=== PATIENT | female | born 1970 | race Hispanic/Latino ===

== ENCOUNTER 2016-11-06 21:27 | Emergency (ER) | payer OTHER ==
[~2016-11-06 21:27] MED LIST: ADVAIR DISKU 11 UNIT IH; ADVAIR DISKUS 21 DSK INH; FERRALET 901 TAB PO; IBUPROFEN800 M1 PO; IBUPROFEN800 MG PO; INTEGRA-F1 CAP PO; LORTAB PO; METFORMIN HCL500 MG PO; NATURAL IRON65 MG PO; PANTOPRAZOLE SO40 MG PO; PROAIR HFA0.09 MG/Ac INH; PROTONIX 40MG T40 MG PO; PROTONIX40 M3 PO; SINGULAIR 5 MG T5 MG PO; SINGULAIR10 MG PO
[2016-11-06 21:30] VITALS: BP 125/85
--- NOTE | 2016-11-06 21:59 | RADIOLOGY REPORT ---
EXAMINATION: XR CHEST CLINICAL INFORMATION: Cough. Congestion. COMPARISON: Chest radiography 06/22/2015. TECHNIQUE: PA and lateral views of the chest were obtained. FINDINGS: No new significant abnormality is noted involving the heart, lungs, mediastinum, bony thorax, or soft tissues. Upper abdominal surgical clips. IMPRESSION: No evidence of pneumonia.
--- NOTE | 2016-11-06 22:13 | ED INFLUENZA/URI COMPLAINT ---
History of Present Illness General Chief Complaint: Upper Respiratory Sx/Fever Stated Complaint: UPPER RESP SYMPTOMS, Hx ASTHMA Source: patient Exam Limitations: no limitations Vital Signs & Intake/Output Vital Signs & Intake/Output Vital Signs Date Time Temp Pulse Resp B/P Pulse O2 O2 Flow FiO2 Ox Delivery Rate 11/06 2130 97.6 87 18 125/85 100 Room Air Allergies Coded Allergies: cat dander (TRIGGERS ASTHMA AND EYES SWELL 03/25/16) morphine (HEADACHE AND NAUSEA 03/25/16) oats (ITCHY 03/25/16) shellfish derived (SHRIMP - ITCH AND ALLERGY TESTED POSITIVE 03/25/16) tramadol (ITCH 03/25/16) Reconcile Medications Albuterol Sulfate (Proair Hfa) 0.09 MG/Actuation IZZY 2 PUFF INH PRN ASTHMA ( Reported) Azithromycin (Zithromax) 500 MG TABLET 1 TAB PO DAILY BRONCHITIS Benzonatate (Tessalon Perle) 100 MG CAPSULE 1 CAP PO TID PRN COUGH FLUTICASONE/SALMETEROL (Advair 250-50 Diskus) 250 MCG-50 MCG/DOSE BLST.W.DEV 1 PUFF INH BID PRN ASTHMA (Reported) Ibuprofen 800 MG TABLET 1 TAB PO PRN MENSTRUAL CRAMPS (Reported) IRON FUM & PS CMP/FA/VIT C/B3 (Integra F Capsule) (Unknown Strength) CAP ( Unknown Dose) PO DAILY SUPPLEMENT (Reported) Montelukast Sodium (Singulair) 10 MG TAB 1 TAB PO PRN ALLERGIES (Reported) Pantoprazole Sodium (Protonix) 40 MG TABLET. 1 TAB PO QDAY GASTRIC PAIN Triage Note: TRIAGE; PT TO ED C/O THAT SHE FEELS LIKE SHE IS GETTING A COLD. HAS A HX OF ASTHMA AND STATES SHE IS GETTING A COUGH AND INTERMITTENT SOB. DENIES ANY FEVERS AT HOME. Triage Nurses Notes Reviewed? yes Onset: Gradual Duration: constant Timing: recent history Severity: moderate Severity Numbers: 5 : No Patient currently breastfeeds: No HPI: Patient is a 46-year-old female with past medical history of allergies and asthma who presents emergency room stating that last week patient was seen at urgent care facility for asthma exacerbation and was given steroids with improvement of her wheezing over the last 2 days patient has developed a gradual onset of productive yellow cough pleuritic chest pain upon coughing denies weakness and fatigue and chills. Denies any positive sick contacts. Patient has been taking at home inhaler medication and respiratory medications for her symptoms with minimal relief. (FRANC MENDOZA) Past History Travel History Traveled to [place] past 21 day No Medical History Any Pertinent Medical History? 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 No (FRANC MENDOZA) Review of Systems Review of Systems Constitutional: Reports: see HPI, chills. EENTM: Reports: no symptoms. Respiratory: Reports: see HPI, cough. Cardiovascular: Reports: no symptoms. GI: Reports: no symptoms. Genitourinary: Reports: no symptoms. Musculoskeletal: Reports: no symptoms. Skin: Reports: no symptoms. Neurological/Psychological: Reports: no symptoms. Hematologic/Endocrine: Reports: no symptoms. Immunologic/Allergic: Reports: no symptoms. All Other Systems: Reviewed and Negative (FRANC MENDOZA) Physical Exam Physical Exam General Appearance: well developed/nourished, no apparent distress Ears, Nose, Throat: normal ENT inspection, moist mucous membrane, hearing grossly normal, Tympanic normal, pharynx normal, NONTENDER SINUS Comments: Well-developed well-nourished person in no acute distress HEENT: Normal EENT exam, extraocular motion intact, no nystagmus. Pupils equally round and reactive to light and accommodation. Nose is atraumatic. External auditory canal and Tympanic membranes clear. Pharynx normal. No swelling or edema. Neck: Supple, no lymphadenopathy, normal range of motion without pain or tenderness Back: Nontender, no CVA tenderness. Cardiovascular: Regular rate and rhythms no murmurs rubs or gallops, normal JVP Respiratory: Chest nontender. No respiratory distress.breath sounds clear to auscultation bilaterally Abdomen: Soft, nontender nondistended, no appreciable organomegaly. Normal bowel sounds. No ascites Extremity: No edema, no calf tenderness to palpation, normal and equal pulses. Neuro: Alert oriented x3, motor sensory normal, Skin: No appreciable rash on exposed skin, skin is warm and dry. Psych: Mood and affect is normal, memory and judgment is normal. Core Measures Severe Sepsis Present: No Septic Shock Present: No (FRANC MENDOZA) Progress Differential Diagnosis: influenza, meningitis, neutropenia, otitis, pneumonia, pharyngitis, sinusitis Plan of Care: Patient on initial examination had clear lungs to auscultation and unremarkable physical exam findings oxygen saturation was 98% room air patient was afebrile chest x-ray was unremarkable for acute process. Upon discharge patient looks well no apparent distress and will comply with discharge instructions and had no questions Diagnostic Imaging: Viewed by Me: Radiology Read. CXR Impression: no acute abnormality Initial ED EKG: none Comments: PATIENT: SALVADOR ROQUE PRESENT AGE: 46 PATIENT ACCOUNT NO: [id number] : 72 LOCATION: [facility] ORDERING PHYSICIAN: PETER HATHAWAY DO (TBS) SERVICE DATE: 11/06/16 EXAM TYPE: RAD - XRY-CHEST XRAY, PA AND LATERAL EXAMINATION: XR CHEST CLINICAL INFORMATION: Cough. Congestion. COMPARISON: Chest radiography 06/22/2015. TECHNIQUE: PA and lateral views of the chest were obtained. FINDINGS: No new significant abnormality is noted involving the heart, lungs, mediastinum, bony thorax, or soft tissues. Upper abdominal surgical clips. IMPRESSION: No evidence of pneumonia. (FRANC MENDOZA) Departure Departure Disposition: HOME OR SELF CARE Condition: Stable Clinical Impression Primary Impression: Bronchitis Referrals: CYNDY SIMON APRN (PCP/Family) Additional Instructions: As discussed begin the prescription of azithromycin as directed for the full course. Begin the prescription of Tessalon Perles for cough. Begin over-the- counter Mucinex and Sudafed for symptoms. If no better on Monday follow-up with primary care doctor. Continue home medications as directed. If symptoms worsen or if you develop a new concerning symptom return to the emergency room. Prescriptions are waiting at [facility] pharmacy. Departure Forms: Customer Survey General Discharge Information Prescriptions: Current Visit Scripts Azithromycin (Zithromax) 1 TAB PO DAILY #5 TAB Benzonatate (Tessalon Perle) 1 CAP PO TID PRN COUGH #21 CAP (FRANC MENDOZA) PA/WIRE RIGGER Co-Sign Statement Statement: ED Attending supervision documentation- [] I saw and evaluated the patient. I have also reviewed all the pertinent lab results and diagnostic results. I agree with the findings and the plan of care as documented in the PA's/WIRE RIGGER's documentation. [X] I have reviewed the ED Record and agree with the PA's/WIRE RIGGER's documentation. [] Additions or exceptions (if any) to the PAs/WIRE RIGGER's note and plan are summarized below: [] (ALEJANDRA MAHAN,PATRICIA Soriano)
[2016-11-06] MEDS ORDERED: TESSALON PERLE100 M1 PO (22:15)
[2016-11-06] MEDS ORDERED: ZITHROMAX500 M2 PO (22:15)
== END 2016-11-06 22:22 ==
LOC: ERH 21:27
DX: J40 Bronchitis, not specified as acute or chronic (principal)

== ENCOUNTER 2016-11-26 19:46 | Emergency (ER) | payer OTHER ==
[~2016-11-26] VITALS: Ht 157.5 cm; Wt 54.4 kg
[~2016-11-26 19:46] MED LIST changes: +TESSALON PERLE100 M1 PO; +ZITHROMAX500 M2 PO
[2016-11-26 19:54] VITALS: BP 136/88
[2016-11-26] MEDS ORDERED: TOPAMAX200 M1 PO (20:19)
[2016-11-26] MEDS ORDERED: LISINOPRIL40 M1 PO (20:20)
[2016-11-26] MEDS ORDERED: VENLAFAXINE HC100 M1 PO (20:22)
[2016-11-26] MEDS ORDERED: METFORMIN HCL1000 M1 PO (20:23)
--- NOTE | 2016-11-26 20:23 | ED NECK/BACK PAIN COMPLAINT ---
History of Present Illness General Chief Complaint: Low Back Pain/Injury Stated Complaint: BACK PAIN Source: patient, old records Exam Limitations: no limitations Vital Signs & Intake/Output Vital Signs & Intake/Output Vital Signs Date Time Temp Pulse Resp B/P Pulse O2 O2 Flow FiO2 Ox Delivery Rate 11/26 1953 97.8 87 18 136/88 98 Room Air Allergies Coded Allergies: cat dander (TRIGGERS ASTHMA AND EYES SWELL 03/25/16) morphine (HEADACHE AND NAUSEA 03/25/16) oats (ITCHY 03/25/16) shellfish derived (SHRIMP - ITCH AND ALLERGY TESTED POSITIVE 03/25/16) tramadol (ITCH 03/25/16) Triage Note: PT TO TRIAGE WITH C/O LOW/MIDDLE BACK PAIN AND R SIDE OF BACK PAIN RADIATING TO NECK 8/10 S/P BAND BACKWARDS TO PREVENT FALLING. PAIN IS GETTING WORSE. NO OTHER COMPLAINTS. VSS. Triage Nurses Notes Reviewed? yes : No Patient currently breastfeeds: No HPI: Patient is a 46-year-old female presents complaining of right-sided thoracic pain, bilateral lumbar paraspinal pain. Patient was about to fall yesterday and bent backwards causing the pain. Pain is a sharp pain, worsens with movement. Pain is currently severe. Patient reports that she did not fall to the ground that she was able to catch herself prior to falling. Patient denies head injury , numbness, pain radiating down her legs, incontinence, abdominal pain. (TAO SANDERS) Past History Travel History Traveled to [place] past 21 day No Medical History Any Pertinent Medical History? 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 No (TAO SANDERS) Review of Systems Review of Systems Constitutional: Reports: no symptoms. Eyes: Reports: no symptoms. Respiratory: Denies: short of breath. Cardiovascular: Denies: chest pain. Gastrointestinal/Abdominal: Denies: abdominal pain. Musculoskeletal: Reports: see HPI. Skin: Reports: no symptoms. Neurological/Psychological: Denies: headache, numbness, paresthesia. (TAO SANDERS) Physical Exam Physical Exam General Appearance: well developed/nourished, alert, awake Head: atraumatic, normal appearance Eyes: Bilateral: normal appearance. Ears, Nose, Throat, Mouth: hearing grossly normal, moist mucous membrane Neck: normal inspection, supple, full range of motion, no midline tenderness, no paraspinal tenderness Respiratory: normal breath sounds, chest non-tender, no respiratory distress, lungs clear Cardiovascular: regular rate/rhythm Gastrointestinal: soft, non-tender Back: right thoracic paraspinal tenderness. Bilateral lumbar paraspinal tenderness. No midline tenderness. Full range of motion. Extremities: non-tender, normal range of motion Straight Leg Raising: Right: Negative. Left: Negative. DTR: Patellar: 2: L4 Right, L4 Left. Neurologic/Psych: no motor/sensory deficits, awake, alert, oriented x 3, normal gait, normal mood/affect Skin: intact, normal color, warm/dry (TAO SANDERS) Progress Differential Diagnosis: cauda equina syn, herniated disc, myofascial strain, spinal cord inj, T/L spine injury Plan of Care: No acute neurologic abnormalities on exam. No midline tenderness. Injuries appear consistent with muscle strain. Imaging deferred. Will treat conservatively and have patient follow-up with her primary care provider if no improvement. (TAO SANDERS) Departure Departure Time of Disposition: 2024 Disposition: HOME OR SELF CARE Condition: Stable Clinical Impression Primary Impression: Back strain Referrals: CYNDY SIMON APRN (PCP/Family) Additional Instructions: Rest, apply heat to the affected area for 20 minutes 4-5 times a day. Follow-up with your primary doctor if no improvement within 2-3 days. Return to the emergency department if numbness, weakness, incontinence, or worsening of symptoms. Departure Forms: Customer Survey General Discharge Information (TAO SANDERS) PA/STUDIO OWNER Co-Sign Statement Statement: ED Attending supervision documentation- [] I saw and evaluated the patient. I have also reviewed all the pertinent lab results and diagnostic results. I agree with the findings and the plan of care as documented in the PA's/STUDIO OWNER's documentation. x I have reviewed the ED Record and agree with the PA's/STUDIO OWNER's documentation. [] Additions or exceptions (if any) to the PAs/STUDIO OWNER's note and plan are summarized below: [] (RIK MAHAN,ROSA MARIA)
[2016-11-26] MEDS ORDERED: DILTIAZEM 24HR240 MG PO (20:24)
[2016-11-26] MEDS ORDERED: FUROSEMIDE40 M1 PO (20:24)
[2016-11-26] MEDS ORDERED: ATORVASTATIN CA80 M1 PO (20:25)
[2016-11-26] MEDS ORDERED: FENOFIBRATE48 M1 PO (20:26)
[2016-11-26] MEDS ORDERED: TOPROL XL100 M1 PO (20:26)
[2016-11-26] MEDS ORDERED: ABILIFY10 M1 PO (20:27)
[2016-11-26] MEDS ORDERED: LYRICA100 M1 PO (20:28)
[2016-11-26] MEDS ORDERED: ATIVAN1 M1 PO (20:28)
[2016-11-26] MEDS ORDERED: MELOXICAM7.5 M1 PO (20:29)
[2016-11-26] MEDS ORDERED: INVOKANA100 M1 PO (20:29)
[2016-11-26] MEDS ORDERED: MECLIZINE HCL25 MG PO (20:29)
[2016-11-26] MEDS ORDERED: LEVEMIR100 UNIT/1 SC ×2 (20:30)
[2016-11-26] MEDS ORDERED: NOVOLOG100 UNIT/1 (20:31)
[2016-11-26] MEDS ORDERED: TANZEUM50 MG/0.5 INJ (20:32)
[2016-11-26] MEDS ORDERED: MULTIVITAMINS1 EAC9 PO (20:33)
[2016-11-26] MEDS ORDERED: CLARITIN10 M1 PO (20:33)
[2016-11-26] MEDS ORDERED: VITAMIN B122500 MC1 PO (20:33)
[2016-11-26] MEDS ORDERED: CYCLOBENZAPRINE5 M2 PO (20:34)
[2016-11-26] MEDS ORDERED: PERCOCET 5-3251 EACH PO (20:34)
== END 2016-11-26 20:42 ==
LOC: ERH 19:46
DX: S39.012A Strain of muscle, fascia and tendon of lower back, initial encounter (principal); X58.XXXA Exposure to other specified factors, initial encounter

== ENCOUNTER 2016-12-07 13:31 | Emergency (ER) | payer OTHER ==
[~2016-12-07] VITALS: Ht 144.8 cm; Wt 54.4 kg
[~2016-12-07 13:31] MED LIST changes: +ABILIFY10 M1 PO; +ATIVAN1 M1 PO; +ATORVASTATIN CA80 M1 PO; +CLARITIN10 M1 PO; +CYCLOBENZAPRINE5 M2 PO; +DILTIAZEM 24HR240 MG PO; +FENOFIBRATE48 M1 PO; +FUROSEMIDE40 M1 PO; +INVOKANA100 M1 PO; +LEVEMIR100 UNIT/1 SC; +LISINOPRIL40 M1 PO; +LYRICA100 M1 PO; +MECLIZINE HCL25 MG PO; +MELOXICAM7.5 M1 PO; +METFORMIN HCL1000 M1 PO; +MULTIVITAMINS1 EAC9 PO; +NOVOLOG100 UNIT/1; +PERCOCET 5-3251 EACH PO; +TANZEUM50 MG/0.5 INJ; +TOPAMAX200 M1 PO; +TOPROL XL100 M1 PO; +VENLAFAXINE HC100 M1 PO; +VITAMIN B122500 MC1 PO
[2016-12-07 13:51] VITALS: BP 130/85
--- NOTE | 2016-12-07 15:44 | ED GENERAL ADULT ---
History of Present Illness General Chief Complaint: Foot or Ankle Injury Stated Complaint: L ANKLE PAIN Source: patient, family Exam Limitations: no limitations Vital Signs & Intake/Output Vital Signs & Intake/Output Vital Signs Date Time Temp Pulse Resp B/P Pulse O2 O2 Flow FiO2 Ox Delivery Rate 12/07 1351 98.4 108 20 130/85 98 Room Air Allergies Coded Allergies: cat dander (TRIGGERS ASTHMA AND EYES SWELL 03/25/16) morphine (HEADACHE AND NAUSEA 03/25/16) oats (ITCHY 03/25/16) shellfish derived (SHRIMP - ITCH AND ALLERGY TESTED POSITIVE 03/25/16) tramadol (ITCH 03/25/16) Reconcile Medications Fluticasone/Salmeterol (Advair 250-50 Diskus) 250 MCG-50 MCG/DOSE BLST.W.DEV 1 PUF INH BID WHEEZING (Reported) Montelukast Sodium 10 MG TABLET 1 TAB PO DAILY ANTI-INFLAMMATORY (Reported) Naproxen 500 MG TABLET 1 TAB PO BID PAIN CONTROL (Reported) Pantoprazole Sodium 40 MG TABLET.DR 1 TAB PO DAILY ACID REFLUX (Reported) Triage Note: PT TO ED C/O LEFT ANKLE PAIN SINCE YESTERDAY. DENIES ANY INJURY. HAS NOT TRIED OTC MEDS. REFUSING MEDS IN TRIAGE. Triage Nurses Notes Reviewed? yes : No Patient currently breastfeeds: No HPI: 46-year-old woman with past medical history of left ankle fracture status post surgical fixation and hardware and gastric bypass seen for evaluation of acute onset left ankle pain. She reports 6/10 throbbing ankle pain worsened with movement and dorsiflexion. She was at home sitting down watching TV when the pain started and denies any recent trauma. She reports that she "broke her ankle" approximately one year ago and underwent surgical fixation with placement of "plates and screws". She denies taking any [id number] medications or any other remedies to relieve her pain. She denies any other symptoms. Additionally she denies any headache, fever, chills, chest pain, palpitations, shortness breath, nausea, vomiting, diarrhea. (RANJAN MAHAN,MARY) Past History Travel History Traveled to [place] past 21 day No Medical History Any Pertinent Medical History? 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 Yes (MARY WOODRUFF MD) Review of Systems Review of Systems Constitutional: Reports: see HPI. (MARY WOODRUFF MD) Physical Exam Physical Exam General Appearance: well developed/nourished, no apparent distress, alert, awake , comfortable Comments: General -well-developed, well-nourished middle-aged woman in no acute distress HEENT - NCAT, PERRL, EOMI, anicteric sclera Cardio - S1, S2 w/o murmurs/gallops/rubs Resp - CTA bilaterally w/o wheezing/rhochi/crackles GI - soft, nontender, nondistended, bowel sounds present Neuro - Awake and alert, CN II - XII grossly intact Extremities - no edema, pulses intact, left foot 3 range of motion at ankle, sensation intact, no swelling in ankles, nontender to palpation, mildly tender to dorsiflexion, no obvious skin changes, staggered gait with hesitation, no deformity Core Measures ACS in differential dx? No CVA/TIA Diagnosis: No Severe Sepsis Present: No Septic Shock Present: No (MARY WOODRUFF MD) Progress Differential Diagnoses I considered the following diagnoses in my evaluation of the patient: Ankle sprain/strain, infected hardware, occult fracture, gout, inflammatory condition Plan of Care: Orders Procedure Date/time Status XRY-FOOT TWO VIEWS, LEFT 12/07 1518 Active Initial ED EKG: none Comments: Given patient's physical exam with relatively benign findings it is likely that patient is experiencing and arthritis secondary to chronic changes in the joints after the surgical fixation. He was previously maintained on oral ibuprofen for pain control was discontinued from this medication due to her gastric bypass surgery and recommendations of her surgeon. Multiview x-ray of the joint demonstrated chronic changes secondary to the open reduction and internal fixation of the distal left fibular fracture without any acute findings. She was instructed to follow-up with her surgeon or an orthopedist for further evaluation and management of her symptoms. (MARY WOODRUFF MD) Departure Departure Disposition: HOME OR SELF CARE Condition: Stable Clinical Impression Primary Impression: Monoarthritis of ankle Qualifiers: Laterality: left Qualified Code: M13.172 - Monoarthritis, not elsewhere classified, left ankle and foot Referrals: VIJI MAHAN,CYNYD STARKS APRN (PCP/Family) [facility] DIRK MAHAN,KYLAH Stiles Departure Forms: Customer Survey General Discharge Information (MARY WOODRUFF MD) PA/PAINTER HELPER Co-Sign Statement Statement: ED Attending supervision documentation- [] I saw and evaluated the patient. I have also reviewed all the pertinent lab results and diagnostic results. I agree with the findings and the plan of care as documented in the PA's/PAINTER HELPER's documentation. [X] I have reviewed the ED Record and agree with the PA's/PAINTER HELPER's documentation. [] Additions or exceptions (if any) to the PAs/PAINTER HELPER's note and plan are summarized below: [] Resident Co-Sign Statement Statement: ED Attending supervision documentation- [x] I saw and evaluated the patient. I have also reviewed all the pertinent lab results and diagnostic results. I agree with the findings and the plan of care as documented in the Resident's documentation. [x] I have reviewed the ED Record and agree with the Resident's documentation. [] Additions or exceptions (if any) to the Resident's note and plan are summarized below: [] (ROSA ELENA MAHAN,JOEY) Critical Care Note Critical Care Note Critical Care Time: non-applicable (MARY WOODRUFF MD)
--- NOTE | 2016-12-07 15:48 | RADIOLOGY REPORT ---
EXAMINATION: XR FOOT, LEFT CLINICAL INFORMATION: Previous fracture with hardware placement. Acute onset pain. COMPARISON: Intraoperative fluoroscopic images of ORIF left ankle 10/26/2011.. TECHNIQUE: AP and lateral views of the left foot. FINDINGS: Chronic changes of an open reduction internal fixation of a distal left fibular fracture are redemonstrated. Hardware is grossly intact and there is no evidence of loosening or infection. There is no evidence of acute fracture or dislocation. Joint spaces are grossly maintained. Soft tissues are unremarkable. IMPRESSION: Chronic changes related to an open reduction internal fixation of a distal left fibular fracture. No acute finding.
[2016-12-07] MEDS ORDERED: NAPROXEN500 M2 PO (16:20)
[2016-12-07] MEDS ORDERED: MONTELUKAST SOD10 M1 PO (16:21)
[2016-12-07] MEDS ORDERED: ADVAIR 250-501 EACH INH (16:22)
[2016-12-07] MEDS ORDERED: PANTOPRAZOLE SO40 M1 PO (16:22)
== END 2016-12-07 16:21 ==
LOC: ERH 13:31
DX: M13.172 Monoarthritis, not elsewhere classified, left ankle and foot (principal)
CPT/HCPCS: 73620-LT

== ENCOUNTER 2016-12-31 15:25 | Emergency (ER) | payer OTHER ==
[~2016-12-31] VITALS: Ht 144.8 cm; Wt 54.4 kg
[~2016-12-31 15:25] MED LIST changes: +ADVAIR 250-501 EACH INH; +MONTELUKAST SOD10 M1 PO; +NAPROXEN500 M2 PO; +PANTOPRAZOLE SO40 M1 PO
[2016-12-31] MEDS ORDERED: CELEBREX100 M1 PO (16:54)
[2016-12-31] MEDS ORDERED: CYCLOBENZAPRINE10 M1 PO (16:55)
[2016-12-31] MEDS ORDERED: MULTI-DAY VITA1 EACH PO (16:56)
[2016-12-31 17:00] LABS: ABSOLUTE BASOPHIL COUNT 0 /CUMM (0.0-0.2); ABSOLUTE EOSINOPHIL COUNT 0 /CUMM (0.0-0.7); ABSOLUTE GRANULOCYTE CT 4.8 /CUMM (1.4-6.5); ABSOLUTE LYMPH COUNT 0.9 /CUMM (1.2-3.4); ABSOLUTE MONOCYTE COUNT 0.5 /CUMM (0.10-0.60); BASOPHIL % 0.3 % (0.0-2.0); EOSINOPHIL % 0.8 % (0-5); GRANULOCYTE % 76.2 % (42.2-75.2); HEMATOCRIT 37.8 % (37-47); MEAN CORPUSCULAR HGB 29.1 PG (27.0-31.0); MEAN CORPUSCULAR HGB CONC 33.1 G/DL (33.0-37.0); MEAN CORPUSCULAR VOLUME 87.8 FL (81.0-99.0); MEAN PLATELET VOLUME 7.9 FL (7.4-10.4); PLATELET COUNT 266 /CUMM (130-400); WHITE BLOOD CELL COUNT 6.3 /CUMM (4.8-10.8)
--- NOTE | 2016-12-31 18:25 | ED CARDIAC/CP/PALPITATIONS ---
History of Present Illness General Chief Complaint: Palpitations Stated Complaint: PALPATATIONS, X 1 HR Source: patient Exam Limitations: no limitations Vital Signs & Intake/Output Vital Signs & Intake/Output Vital Signs Date Time Temp Pulse Resp B/P Pulse O2 O2 Flow FiO2 Ox Delivery Rate 12/31 2021 97.1 97 18 130/81 99 Room Air 12/31 1823 97.4 96 20 127/79 100 Room Air 12/31 1649 99 Room Air 12/31 1538 97.6 119 20 145/90 99 Room Air ED Intake and Output 01/01 0000 12/31 1200 Intake Total 1000 Output Total Balance 1000 Intake, IV 1000 Patient 120 lb Weight Allergies Coded Allergies: NSAIDS (Non-Steroidal Anti-Inflamma (PER PT CANT TAKE DUE TO BYPASS 12/31/16) cat dander (TRIGGERS ASTHMA AND EYES SWELL 03/25/16) morphine (HEADACHE AND NAUSEA 03/25/16) oats (ITCHY 03/25/16) shellfish derived (SHRIMP - ITCH AND ALLERGY TESTED POSITIVE 03/25/16) tramadol (ITCH 03/25/16) Reconcile Medications Celecoxib (Celebrex) 100 MG CAPSULE 1 CAP PO DAILY PRN PAIN/INFLAMMATION ( Reported) Cyclobenzaprine HCl 10 MG TABLET 1 TAB PO QHS MUSCLE RELAXER (Reported) Fluticasone/Salmeterol (Advair 250-50 Diskus) 250 MCG-50 MCG/DOSE BLST.W.DEV 1 PUF INH BID WHEEZING (Reported) Montelukast Sodium 10 MG TABLET 1 TAB PO DAILY ANTI-INFLAMMATORY (Reported) Multivitamin (Multi-Day Vitamins) 1 EACH TABLET 1 TAB PO DAILY SUPPLEMENT ( Reported) Naproxen 500 MG TABLET 1 TAB PO BID PAIN CONTROL (Reported) Pantoprazole Sodium 40 MG TABLET.DR 1 TAB PO DAILY ACID REFLUX (Reported) Triage Note: PT TO ED C/O HEART PALPITATIONS X 1 HOUR. DENIES C/P, DIFF BREATHING, SOB. EKG DONE. Triage Nurses Notes Reviewed? yes : No Patient currently breastfeeds: No HPI: 46 yo PMH Asthma, DM, Gastric Bypass (2013) presenting with palpitations. Intermittent palpitations for the last week, fast/strong heartbeat, present currently. Denies associated fevers, chills, URI Sx, chest pain, SOB, AP, N/V/D/ C, bloody stools, urinary Sx, focal neurologic Sx, dizziness, recent immobility/ hospitalization, LE swelling/pain. Intermittent EtOH use, most recently 1 month ago. Hx of chronic left sided neck pain, not worse recently. (ROSIBEL MCKEON MD) Past History Travel History Traveled to [place] past 21 day No Medical History Any Pertinent Medical History? 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 Yes (ROSIBEL MCKEON MD) Review of Systems Review of Systems Constitutional: Reports: no symptoms. EENTM: Reports: no symptoms. Respiratory: Reports: no symptoms. Cardiovascular: Reports: palpitations. Denies: chest pain, orthopena, peripheral edema. GI: Reports: no symptoms. Genitourinary: Reports: no symptoms. Musculoskeletal: Reports: neck pain (Chronic). Skin: Reports: no symptoms. Neurological/Psychological: Reports: no symptoms. Hematologic/Endocrine: Reports: no symptoms. Immunologic/Allergic: Reports: no symptoms. All Other Systems: Reviewed and Negative (ROSIBEL MCKEON MD) Physical Exam Physical Exam General Appearance: well developed/nourished, no apparent distress, alert, awake Head: atraumatic, normal appearance Eyes: Bilateral: normal appearance. Ears, Nose, Throat: normal pharynx, normal ENT inspection Neck: normal inspection, supple, full range of motion Cardiovascular: normal peripheral pulses, tachycardia Gastrointestinal: normal bowel sounds, soft, non-tender Back: normal inspection, normal range of motion Extremities: normal inspection, no edema Neurologic/Psych: no motor/sensory deficits, awake, alert, oriented x 3 Core Measures ACS in differential dx? No Severe Sepsis Present: No Septic Shock Present: No (ROSIBEL MCKEON MD) Progress Differential Diagnosis: atrial fibrillation, hypovolemia, hyperthyroid, pulmonary embolism, sepsis Plan of Care: Orders Procedure Date/time Status Regular Diet 01/01 B Active Add-on Test (ER Only) 12/31 181 Active FREE T4 12/31 165 Complete URINE 12/31 163 Complete URINALYSIS 12/31 163 Complete THYROID STIMULATING HORMONE 12/31 163 Complete CBC WITHOUT DIFFERENTIAL 12/31 163 Complete BASIC METABOLIC PANEL 12/31 163 Complete EKG 12/31 1527 Active Laboratory Tests 12/31/16 1819: Urine Color YEL, Urine Clarity CLEAR, Urine pH 6.0, Ur Specific [place] 1.015, Urine Protein NEG, Urine Ketones NEG, Urine Nitrite NEG, Urine Bilirubin NEG, Urine Urobilinogen 0.2, Ur Leukocyte Esterase NEG, Ur Microscopic SEDIMENT EXAMINED, Urine RBC 3-5, Urine WBC 1-3 H, Ur Epithelial Cells FEW, Urine Crystals 1+ CA OX H, Urine Bacteria FEW H, Urine Mucus FEW, Micro UA Comment B[place] YEAST H, Urine Hemoglobin MOD H, Urine Glucose 100 H, Urine Test NEGATIVE 12/31/161649: Anion Gap 11, Estimated GFR > 60, BUN/Creatinine Ratio 21.4, Glucose 82, Calcium 9.3, TSH 0.242 L, Free T4 0.97, CBC w Diff NO MAN DIFF REQ, RBC 4.30, MCV 87.8, MCH 29.1, RDW 13.0, MPV 7.9, Gran % 76.2 H, Lymphocytes % 14.0 L, Monocytes % 8.7, Eosinophils % 0.8, Basophils % 0.3, Absolute Granulocytes 4.8, Absolute Lymphocytes 0.9 L, Absolute Monocytes 0.5, Absolute Eosinophils 0, Absolute Basophils 0, PUBS MCHC 33.1 Physician MDM: 46 yo F PMH asthma, cervicalgia, gastric bypass 2013 presenting with palpitations. HR 100-110s, regular, remainder of exam as above. ECG sinus tachycardia, non-ischemic. DDx: Hypovolemia, hyperthyroidism, anemia, anxiety, pain, low concern for PE, EtOH withdrawal. CBC with normal Hgb. BMP unermarkable. TSH mildly low, Free T4 normal. Given 2L NS with improvement in HR to 80-90s. On re-examination palpitations resolved, patient resquesting discharge. Return to care precautions discussed with patient, will return for CP or SOB. Plan to f/u in the next 2-3 days with PMD for pulse recheck. D/Rui. D/W Dr. Arzate. (ROSIBEL MCKEON MD) Initial ED EKG: Sinus tachycardia (ROSIBEL MCKEON MD) Departure Departure Disposition: HOME OR SELF CARE Condition: Stable Clinical Impression Primary Impression: Tachycardia Secondary Impressions: Dehydration, Palpitations Referrals: CYNDY SIMON APRN (PCP/Family) Additional Instructions: Drink plenty of fluids. Follow up with your primary care physician in the next 2-3 days. Return to the ED for any new, worsening, or concerning symptoms. Departure Forms: Customer Survey General Discharge Information (ROSIBEL MCKEON MD) Resident Co-Sign Statement Statement: ED Attending supervision documentation- [X] I saw and evaluated the patient. I have also reviewed all the pertinent lab results and diagnostic results. I agree with the findings and the plan of care as documented in the Resident's documentation. [X] I have reviewed the ED Record and agree with the Resident's documentation. [] Additions or exceptions (if any) to the Resident's note and plan are summarized below: [] (ROSA ELENA MAHAN,JOEY) Critical Care Note Critical Care Note Critical Care Time: non-applicable (ROSIBEL MCKEON MD)
[2016-12-31 20:22] VITALS: BP 130/81
== END 2016-12-31 20:30 ==
LOC: ERH 15:25
PROVIDERS: Student in an Organized Health Care Education/Training Program
DX: R00.0 Tachycardia, unspecified (principal); E86.0 Dehydration; R00.2 Palpitations
CPT/HCPCS: 81001; 81025; 93005; 93010; 96360; 96361; 99291

== ENCOUNTER 2017-03-03 14:37 | Emergency (ER) | payer OTHER ==
[~2017-03-03] VITALS: Ht 144.8 cm; Wt 54.4 kg
[~2017-03-03 14:37] MED LIST changes: +CELEBREX100 M1 PO; +CYCLOBENZAPRINE10 M1 PO; +MULTI-DAY VITA1 EACH PO
[2017-03-03 14:41] VITALS: BP 129/82
--- NOTE | 2017-03-03 16:04 | ED ANKLE/FOOT INJURY COMPLAINT ---
History of Present Illness General Chief Complaint: Foot or Ankle Injury Stated Complaint: NEEDS PAIN MED FOR L ANKLE PAIN Source: patient Exam Limitations: no limitations Vital Signs & Intake/Output Vital Signs & Intake/Output Vital Signs Date Time Temp Pulse Resp B/P B/P Pulse O2 O2 Flow FiO2 Mean Ox Delivery Rate 03/03 1441 98.0 92 20 129/82 100 Room Air Allergies Coded Allergies: NSAIDS (Non-Steroidal Anti-Inflamma (PER PT CANT TAKE DUE TO BYPASS 12/31/16) cat dander (TRIGGERS ASTHMA AND EYES SWELL 03/25/16) morphine (HEADACHE AND NAUSEA 03/25/16) oats (ITCHY 03/25/16) shellfish derived (SHRIMP - ITCH AND ALLERGY TESTED POSITIVE 03/25/16) tramadol (ITCH 03/25/16) Reconcile Medications Celecoxib (Celebrex) 100 MG CAPSULE 1 CAP PO DAILY PRN PAIN/INFLAMMATION ( Reported) Cyclobenzaprine HCl 10 MG TABLET 1 TAB PO QHS MUSCLE RELAXER (Reported) Fluticasone/Salmeterol (Advair 250-50 Diskus) 250 MCG-50 MCG/DOSE BLST.W.DEV 1 PUF INH BID WHEEZING (Reported) Montelukast Sodium 10 MG TABLET 1 TAB PO DAILY ANTI-INFLAMMATORY (Reported) Multivitamin (Multi-Day Vitamins) 1 EACH TABLET 1 TAB PO DAILY SUPPLEMENT ( Reported) Naproxen 500 MG TABLET 1 TAB PO BID PAIN CONTROL (Reported) Pantoprazole Sodium 40 MG TABLET.DR 1 TAB PO DAILY ACID REFLUX (Reported) Triage Note: PT TO ED REQUESTING PAIN MEDS FOR LEFT ANKLE PAIN. PT STATES SHE HAD SURGERY HERE IN 2011 AND STATES "IT'S NEVER BEEN THE SAME". PT ALLERGIC TO NSAIDS AND DECLINING TYLENOL. DENIES ANY NEW INJURY TO ANKLE. Triage Nurses Notes Reviewed? yes : No Patient currently breastfeeds: No HPI: This patient is a 46 year old female who presented for evaluation of left ankle pain requesting pain medication. She reported that she had ankle surgery here at [facility] in 2011 after she broke her ankle requiring hardware. She stated that the pain is always there. It gets up to an 8 out of 10 and is worse with ambulation. It is sharp and non-radiating. She took a friend's Percocet which, "was the only thing that helped. I'm allergic to NSAIDs, morphine, and Tramadol." She reported that Tylenol does not help. Her PCP is working on getting her in to physicial therapy. No recent injuries to the area. (LOS MOELLER PA-C) Past History Travel History Traveled to [place] past 21 day No Medical History Any Pertinent Medical History? 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 No (LOS MOELLER PA-C) Review of Systems Review of Systems Constitutional: Reports: no symptoms. EENTM: Reports: no symptoms. Respiratory: Reports: no symptoms. Cardiovascular: Reports: no symptoms. GI: Reports: no symptoms. Musculoskeletal: Reports: see HPI. Skin: Reports: no symptoms. Neurological/Psychological: Reports: no symptoms. All Other Systems: Reviewed and Negative (LOS MOELLER PA-C) Physical Exam Physical Exam Leg/Knee/Thigh Left: normal range of motion, normal inspection Comments: General: Well-developed, well-nourished person in no acute distress HEENT: Head normocephalic, moist mucous membranes Back: Antalgic gait Respiratory: No respiratory distress. Speaking in full sentences Extremities: Normal and equal pulses Left ankle: Well-healed surgical incision site over-lying the lateral malleolus. No edema or overlying erythema or ecchymosis to the joint. FROM at the ankle. Non-tender to palpation. No deformities noted Neuro: A&Ox3 Skin: Warm and dry Psych: Normal mood and affect (LOS MOELLER PA-C) Progress Differential Diagnosis: septic arthritis, gout, fracture, dislocation, sprain, contusion, compartmental syndrome, chronic pain Plan of Care: Current Medications Sig/Tonya Start time Last Medication Dose Stop Time Status Admin Oxycodone/ 1 TAB ONCE ONE 03/03 1600 UNVr Acetaminophen 03/03 1601 (Percocet) Departure Departure Disposition: HOME OR SELF CARE Condition: Stable Clinical Impression Primary Impression: Chronic pain of left ankle Referrals: CYNDY SIMON APRN (PCP/Family) Additional Instructions: Please follow-up with your primary care physician for further management of your pain. Departure Forms: Customer Survey General Discharge Information (SUNNI AZEVEDO,LOS) PA/SECURITY TECHNICIAN Co-Sign Statement Statement: ED Attending supervision documentation- [] I saw and evaluated the patient. I have also reviewed all the pertinent lab results and diagnostic results. I agree with the findings and the plan of care as documented in the PA's/SECURITY TECHNICIAN's documentation. [X] I have reviewed the ED Record and agree with the PA's/SECURITY TECHNICIAN's documentation. [] Additions or exceptions (if any) to the PAs/SECURITY TECHNICIAN's note and plan are summarized below: [] (ALEJANDRA MAHAN,PATRICIA Soriano)
== END 2017-03-03 17:16 ==
LOC: ERH 14:37
DX: G89.29 Other chronic pain (principal); M25.572 Pain in left ankle and joints of left foot

== ENCOUNTER 2017-03-13 20:01 | Emergency (ER) | payer OTHER ==
[2017-03-13] MEDS ORDERED: BUTALB-ACETAMI1 EAC1 PO (20:41)
[2017-03-13] MEDS ORDERED: VITAMIN D250000 UNIT PO (20:42)
[2017-03-13] MEDS ORDERED: PROTEIN POWDER480 GM PO (20:44)
--- NOTE | 2017-03-13 21:15 | ED GENERAL ADULT ---
History of Present Illness General Chief Complaint: Abdominal Pain/Flank Pain Stated Complaint: RIGHT FLANK PAIN Source: patient Exam Limitations: no limitations Vital Signs & Intake/Output Vital Signs & Intake/Output Vital Signs Date Time Temp Pulse Resp B/P B/P Pulse O2 O2 Flow FiO2 Mean Ox Delivery Rate 03/13 2148 98.6 82 18 124/72 98 Room Air 03/13 2101 Room Air 03/13 2021 98.0 92 20 127/86 96 ED Intake and Output 03/14 0000 03/13 1200 Intake Total 0 Output Total Balance 0 Intake, Oral 0 Patient 125 lb Weight Allergies Coded Allergies: NSAIDS (Non-Steroidal Anti-Inflamma (PER PT CANT TAKE DUE TO BYPASS 12/31/16) cat dander (TRIGGERS ASTHMA AND EYES SWELL 03/25/16) celecoxib (From CELEBREX) (DOES SOMETHING TO HEART PER PT 03/13/17) morphine (HEADACHE AND NAUSEA 03/25/16) oats (ITCHY 03/25/16) shellfish derived (SHRIMP - ITCH AND ALLERGY TESTED POSITIVE 03/25/16) tramadol (ITCH 03/25/16) Reconcile Medications Butalb/Acetaminophen/Caffeine (Hbfhkd-Gmjmnbdx-Casm 50-300-40) 50 MG-300 MG-40 MG CAPSULE 1 TAB PO PRN MIGRAINES (Reported) Cyclobenzaprine HCl 10 MG TABLET 1 TAB PO QHS MUSCLE RELAXER (Reported) Diclofenac Sodium (Voltaren) 1 % GEL..GRAM. 1 GM TOP 4 TIMES/DAY pain apply to affected area(s) Ergocalciferol (Vitamin D2) (Vitamin D2) 50,000 UNIT CAPSULE 1 CAP PO QSUN SUPPLEMENT (Reported) Fluticasone/Salmeterol (Advair 250-50 Diskus) 250 MCG-50 MCG/DOSE BLST.W.DEV 1 PUF INH BID WHEEZING (Reported) Lidocaine (Lidoderm) 5 % ADH..PATCH 1 PAT TOP DAILY pain may wear up to 12 hours Montelukast Sodium 10 MG TABLET 1 TAB PO DAILY ANTI-INFLAMMATORY (Reported) Multivitamin (Multi-Day Vitamins) 1 EACH TABLET 1 TAB PO DAILY SUPPLEMENT ( Reported) Oxycodone HCl/Acetaminophen (Percocet 5-325 MG Tablet) 5 MG-325 MG TABLET 1 TAB PO BID pain Pantoprazole Sodium 40 MG TABLET.DR 1 TAB PO DAILY ACID REFLUX (Reported) Protein Supplement (Protein Powder) (Unknown Strength) POWDER (Unknown Dose) PO DAILY SUPPLEMENT (Reported) Triage Note: PER PT 1 MONTH OF RT SIDE TO BACK PAIN WONT GO AWAY CONSTANT, USING HOT PACKS NO URINE CO PAIN 5/10 DOES NOT GET MENSES ANYMORE Triage Nurses Notes Reviewed? yes : No Patient currently breastfeeds: No HPI: This is a 46 yo female with PMH of DM, gastric bypass in 2013, questionable SBO in 2014, remote cholecystectomy, 2 c sections who comes in for CC 1 mo of r. sided back pain. She states that it is exacerbated by movement. Yesterday 08/01 pain; today /10. Relieved by hotpacks and worsened by movement. Pt has a difficult time describing pain. It is not stabbing or shooting, she states that it is just intermittent pain that comes and goes with movement. No change in urinary symptoms. Denies hematuria, hematochezia, BRBPR, saddle anesthesia, or decreased sensation in perineal aera. She states pain is different from SBO episode. She is able to toelrate normal PO intake, no change in appetite, no N/V/D. (REGGIE MAHAN,ANDRADE) Past History Travel History Traveled to [place] past 21 day No Medical History Any Pertinent Medical History? 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 No (REGGIE MAHAN,ANDRADE) Review of Systems Review of Systems Constitutional: Reports: no symptoms. EENTM: Reports: no symptoms. Respiratory: Reports: no symptoms. Cardiovascular: Reports: no symptoms. GI: Reports: vomiting. Denies: abdominal pain, bloating, constipation, diarrhea, distention, melena, nausea, bloody stool, changes in stool. Genitourinary: Denies: discharge, dysuria, frequency, hematuria, hesitation, nocturia, pain, urgency. Musculoskeletal: Reports: back pain. Skin: Reports: no symptoms. (ANDRADE PAREDES MD) Review of Systems Neurological/Psychological: Reports: no symptoms. Hematologic/Endocrine: Reports: no symptoms. Immunologic/Allergic: Reports: no symptoms. All Other Systems: Reviewed and Negative (ALEJANDRA MAHAN,PATRICIA Soriano) Physical Exam Physical Exam General Appearance: well developed/nourished, no apparent distress, alert, awake Head: atraumatic, normal appearance Eyes: Bilateral: normal appearance, PERRL, EOMI. Ears, Nose, Throat: normal pharynx Neck: normal inspection Respiratory: normal breath sounds, chest non-tender, no respiratory distress, quiet respiration, lungs clear Cardiovascular: regular rate/rhythm Gastrointestinal: normal bowel sounds, soft, non-tender Back: no vertebral tenderness, no evidence of trauma, no CVA, NO TENDERNESS TO PALPATION Extremities: normal inspection, normal range of motion Core Measures ACS in differential dx? No CVA/TIA Diagnosis: No Severe Sepsis Present: No Septic Shock Present: No (ANDRADE PAREDES MD) Physical Exam Neurologic/Psych: no motor/sensory deficits, awake, alert, oriented x 3, normal gait, normal mood/affect Skin: intact, normal color, warm/dry (ALEJANDRA MAHAN,PATRICIA Soriano) Progress Differential Diagnoses I considered the following diagnoses in my evaluation of the patient: [MUSCLE SPASM, SCIATICS, NEPHROLITHIASIS, PYELONEPHRITIS, PNA, ABDOMINAL PAIN, CHOLELITHIASIS] Plan of Care: Going home on flexaril and percocet with close follow up with pcp Initial ED EKG: none (ANDRADE PAREDES MD) Differential Diagnoses I considered the following diagnoses in my evaluation of the patient: (PATRICIA ROBERTS MD) Departure Departure Disposition: HOME OR SELF CARE Condition: Stable Clinical Impression Primary Impression: Back pain Qualifiers: Back pain location: low back pain Chronicity: chronic Back pain laterality: right Sciatica presence: without sciatica Qualified Codes: M54.5 - Low back pain; G89.29 - Other chronic pain Referrals: CYNDY SIMON APRN (PCP/Family) Additional Instructions: 1. Continue to take Flexaril for back pain. We are adding a few percocet for break through pain control 2. Please follow up with your PCP in 48 hrs 3. If you have fever, change in urine, or acute increase in pain then return to ED 4. Some adjunctive pain therapies include lidoderm patch and Voltaren gel Departure Forms: Customer Survey General Discharge Information Prescriptions: Current Visit Scripts Oxycodone HCl/Acetaminophen (Percocet 5-325 MG Tablet) 1 TAB PO BID #5 TAB Diclofenac Sodium (Voltaren) 1 GM TOP 4 TIMES/DAY #1 TUBE apply to affected area(s) Lidocaine (Lidoderm) 1 PAT TOP DAILY #15 PAT may wear up to 12 hours (REGGIE MAHAN,ANDRADE) Resident Co-Sign Statement Statement: ED Attending supervision documentation- [X] I saw and evaluated the patient. I have also reviewed all the pertinent lab results and diagnostic results. I agree with the findings and the plan of care as documented in the Resident's documentation. [X] I have reviewed the ED Record and agree with the Resident's documentation. [] Additions or exceptions (if any) to the Resident's note and plan are summarized below: [I HAVE PERSONALLY SEEN AND EXAMINED THIS PT. I HAVE READ THE ABOVE NOTE AND AGREE WITH WHAT HAS BEEN WRITTEN. PT C/O LOW BACK PAIN, NO RADIATIATION, WORSE WITH MOVEMENT, ACHY, 7 OUT OF 10. EXAM SHOWS MUSCLE SPASMS, NO RED FLAGS] (ALEJANDRA MAHAN,PATRICIA Soriano) Critical Care Note Critical Care Note Critical Care Time: non-applicable (REGGIE MAHAN,ANDRADE)
[2017-03-13] MEDS ORDERED: LIDODERM1 EACH TOP (21:41)
[2017-03-13] MEDS ORDERED: PERCOCET 5-3251 EACH PO (21:41)
[2017-03-13] MEDS ORDERED: VOLTAREN100 GM TOP (21:41)
[2017-03-13 21:48] VITALS: BP 124/72
== END 2017-03-13 21:48 ==
LOC: ERH 20:01
DX: M54.5 Low back pain (principal)

== ENCOUNTER 2017-03-25 20:00 | Emergency (ER) | payer OTHER ==
[~2017-03-25] VITALS: Ht 144.8 cm; Wt 54.4 kg
[~2017-03-25 20:00] MED LIST changes: +BUTALB-ACETAMI1 EAC1 PO; +LIDODERM1 EACH TOP; +PROTEIN POWDER480 GM PO; +VITAMIN D250000 UNIT PO; +VOLTAREN100 GM TOP
[2017-03-25 20:05] VITALS: BP 127/84
[2017-03-25] MEDS ORDERED: PERCOCET 5-3251 EACH PO (20:40)
--- NOTE | 2017-03-25 20:40 | ED GENERAL ADULT ---
History of Present Illness General Chief Complaint: General Adult Stated Complaint: "PER PT LT ANKLE AND LOWER BACK PAIN" Source: patient Exam Limitations: no limitations Vital Signs & Intake/Output Vital Signs & Intake/Output Vital Signs Date Time Temp Pulse Resp B/P B/P Pulse O2 O2 Flow FiO2 Mean Ox Delivery Rate 03/25 2005 98.1 99 18 127/84 97 Room Air ED Intake and Output 03/26 0000 03/25 1200 Intake Total Output Total Balance Patient 120 lb Weight Weight Reported by Patient Measurement Method Allergies Coded Allergies: NSAIDS (Non-Steroidal Anti-Inflamma (PER PT CANT TAKE DUE TO BYPASS 12/31/16) cat dander (TRIGGERS ASTHMA AND EYES SWELL 03/25/16) celecoxib (From CELEBREX) (DOES SOMETHING TO HEART PER PT 03/13/17) morphine (HEADACHE AND NAUSEA 03/25/16) oats (ITCHY 03/25/16) shellfish derived (SHRIMP - ITCH AND ALLERGY TESTED POSITIVE 03/25/16) tramadol (ITCH 03/25/16) Triage Note: PT TO TRIAGE WITH C/O CHRONIC LEFT ANKLE PAIN 12/30 AND LEFT LOWER BACK PAIN 03/01. HX OF LEFT ANKLE SURGERY IN 2011. PT WAS HERE IN ER FOR SAME A WEEK AGO. VSS. Triage Nurses Notes Reviewed? yes : No Patient currently breastfeeds: No HPI: 46-year-old female arrives through triage to room 6 for evaluation of left ankle pain and right low back pain that she has had for months. These have been chronic issues for her. She reports that she has been not getting proper pain management through [facility]. She has been evaluated for chronic pain management in regards to her orthopedic issues but she does not know the name of the doctor. They will not refill Percocet for her through [facility] sO she is here for a prescription for Lidoderm patches and Percocet. (CRISSY TATE APRN) Reconcile Medications Butalb/Acetaminophen/Caffeine (Zgdzqq-Zspyixsq-Fgot 50-300-40) 50 MG-300 MG-40 MG CAPSULE 1 TAB PO PRN MIGRAINES (Reported) Diclofenac Sodium (Voltaren) 1 % GEL..GRAM. 1 GM TOP 4 TIMES/DAY pain apply to affected area(s) Ergocalciferol (Vitamin D2) (Vitamin D2) 50,000 UNIT CAPSULE 1 CAP PO QSUN SUPPLEMENT (Reported) Fluticasone/Salmeterol (Advair 250-50 Diskus) 250 MCG-50 MCG/DOSE BLST.W.DEV 1 PUF INH BID WHEEZING (Reported) Lidocaine (Lidoderm) 5 % ADH..PATCH 1 PAT TOP DAILY PRN PAIN may wear up to 12 hours Montelukast Sodium 10 MG TABLET 1 TAB PO DAILY ANTI-INFLAMMATORY (Reported) Multivitamin (Multi-Day Vitamins) 1 EACH TABLET 1 TAB PO DAILY SUPPLEMENT ( Reported) Oxycodone HCl/Acetaminophen (Percocet 5-325 MG Tablet) 5 MG-325 MG TABLET 1 TAB PO BID PRN PAIN Pantoprazole Sodium 40 MG TABLET.DR 1 TAB PO DAILY ACID REFLUX (Reported) Protein Supplement (Protein Powder) (Unknown Strength) POWDER (Unknown Dose) PO DAILY SUPPLEMENT (Reported) (ROSA ELENA MAHAN,JOEY) Past History Travel History Traveled to [place] past 21 day No Medical History Any Pertinent Medical History? 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 No (CRISSY TATE APRN) Review of Systems Review of Systems Constitutional: Reports: no symptoms. EENTM: Reports: no symptoms. Respiratory: Reports: no symptoms. Cardiovascular: Reports: no symptoms. GI: Reports: no symptoms. Genitourinary: Reports: no symptoms. Musculoskeletal: Reports: back pain, joint pain. Skin: Reports: no symptoms. Neurological/Psychological: Reports: no symptoms. Hematologic/Endocrine: Reports: no symptoms. Immunologic/Allergic: Reports: no symptoms. All Other Systems: Reviewed and Negative (CRISSY TATE APRN) Physical Exam Physical Exam General Appearance: well developed/nourished, no apparent distress, alert, awake , mild distress Head: atraumatic, normal appearance Eyes: Bilateral: normal appearance, PERRL, EOMI. Ears, Nose, Throat: normal pharynx, normal ENT inspection Neck: normal inspection, supple, full range of motion Respiratory: normal breath sounds, chest non-tender, no respiratory distress Cardiovascular: regular rate/rhythm Peripheral Pulses: 2+ radial (R), 2+ radial (L) Gastrointestinal: normal bowel sounds, soft, non-tender Back: normal inspection, normal range of motion, TENDERNESS RIGHT LOWER BACK Extremities: normal inspection, normal capillary refill, normal range of motion, no edema Neurologic/Psych: no motor/sensory deficits, awake, alert, oriented x 3, normal gait, normal mood/affect Skin: intact, normal color, warm/dry Core Measures ACS in differential dx? No CVA/TIA Diagnosis: No Severe Sepsis Present: No Septic Shock Present: No Diagram Body: 1) TENDERNESS 2) TENDERNESS (CRISSY TATE APRN) Progress Differential Diagnoses I considered the following diagnoses in my evaluation of the patient: Refill prescription of pain MEDICATION Plan of Care: GAVE HER telephone number for [employer] patients with chronic pain management. Referrals for care for providers who accepts state. Percocet and Lidoderm patches were given for pain control. Initial ED EKG: none (CRISSY TATE APRN) Departure Departure Time of Disposition: 2033 Disposition: HOME OR SELF CARE Condition: Stable Clinical Impression Primary Impression: Chronic back pain Qualifiers: Back pain location: low back pain Back pain laterality: right Sciatica presence: with sciatica Sciatica laterality: sciatica of right side Qualified Codes: M54.41 - Lumbago with sciatica, right side; G89.29 - Other chronic pain Secondary Impressions: Chronic pain of left ankle Referrals: CYNDY SIMON APRN (PCP/Family) Additional Instructions: Please follow up with [facility] has already directed for chronic left ankle pain and right lower back pain. Departure Forms: Customer Survey General Discharge Information Prescriptions: Current Visit Scripts Oxycodone HCl/Acetaminophen (Percocet 5-325 MG Tablet) 1 TAB PO BID PRN PAIN #10 TAB Lidocaine (Lidoderm) 1 PAT TOP DAILY PRN PAIN #30 PAT may wear up to 12 hours (CRISSY TATE APRN) PA/AD COMPOSITOR Co-Sign Statement Statement: ED Attending supervision documentation- [] I saw and evaluated the patient. I have also reviewed all the pertinent lab results and diagnostic results. I agree with the findings and the plan of care as documented in the PA's/AD COMPOSITOR's documentation. [X] I have reviewed the ED Record and agree with the PA's/AD COMPOSITOR's documentation. [] Additions or exceptions (if any) to the PAs/AD COMPOSITOR's note and plan are summarized below: [] (ROSA ELENA MAHAN,JOEY) Critical Care Note Critical Care Note Critical Care Time: non-applicable (CRISSY TATE APRN)
[2017-03-25] MEDS ORDERED: LIDODERM1 EACH TOP (20:46)
== END 2017-03-25 20:55 ==
LOC: ERH 20:00
DX: M54.5 Low back pain (principal); M25.572 Pain in left ankle and joints of left foot

== ENCOUNTER 2017-04-23 17:32 | Emergency (ER) | payer OTHER ==
[~2017-04-23] VITALS: Ht 144.8 cm; Wt 54.4 kg
[2017-04-23 17:36] VITALS: BP 133/88
--- NOTE | 2017-04-23 18:11 | ED NECK/BACK PAIN COMPLAINT ---
History of Present Illness General Chief Complaint: General Adult Stated Complaint: PT HAS PAIN ON HER RT SIDE Source: patient, old records Exam Limitations: no limitations Vital Signs & Intake/Output Vital Signs & Intake/Output Vital Signs Date Time Temp Pulse Resp B/P B/P Pulse O2 O2 Flow FiO2 Mean Ox Delivery Rate 04/23 1736 98.2 90 15 133/88 99 Room Air Room Air Allergies Coded Allergies: NSAIDS (Non-Steroidal Anti-Inflamma (PER PT CANT TAKE DUE TO BYPASS 04/23/17) cat dander (TRIGGERS ASTHMA AND EYES SWELL 04/23/17) celecoxib (From CELEBREX) (DOES SOMETHING TO HEART PER PT 04/23/17) morphine (HEADACHE AND NAUSEA 04/23/17) oats (ITCHY 04/23/17) shellfish derived (SHRIMP - ITCH AND ALLERGY TESTED POSITIVE 04/23/17) tramadol (ITCH 04/23/17) Reconcile Medications Butalb/Acetaminophen/Caffeine (Jldutw-Kdciptey-Atej 50-300-40) 50 MG-300 MG-40 MG CAPSULE 1 TAB PO PRN MIGRAINES (Reported) Diclofenac Sodium (Voltaren) 1 % GEL..GRAM. 1 GM TOP 4 TIMES/DAY pain apply to affected area(s) Ergocalciferol (Vitamin D2) (Vitamin D2) 50,000 UNIT CAPSULE 1 CAP PO QSUN SUPPLEMENT (Reported) Fluticasone/Salmeterol (Advair 250-50 Diskus) 250 MCG-50 MCG/DOSE BLST.W.DEV 1 PUF INH BID WHEEZING (Reported) Lidocaine (Lidoderm) 5 % ADH..PATCH 1 PAT TOP DAILY PRN PAIN may wear up to 12 hours Montelukast Sodium 10 MG TABLET 1 TAB PO DAILY ANTI-INFLAMMATORY (Reported) Multivitamin (Multi-Day Vitamins) 1 EACH TABLET 1 TAB PO DAILY SUPPLEMENT ( Reported) Oxycodone HCl/Acetaminophen (Percocet 5-325 MG Tablet) 5 MG-325 MG TABLET 1 TAB PO BID PRN PAIN Pantoprazole Sodium 40 MG TABLET.DR 1 TAB PO DAILY ACID REFLUX (Reported) Protein Supplement (Protein Powder) (Unknown Strength) POWDER (Unknown Dose) PO DAILY SUPPLEMENT (Reported) Triage Note: PT TO ED FOR C/C OF CHRONIC R LOWER BACK PAIN. PT DENIES RADIATION OF PAIN TO LEGS. HAS BEEN TAKING FLEXERIL AND 5% LIDOCAINE PATCH WITHOUT RELIEF. Triage Nurses Notes Reviewed? yes : No Patient currently breastfeeds: No HPI: 46F PMH GASTRIC BYPASS PRESENTING WITH 3 MONTHS OF CHRONIC RIGHT SIDED LOWER BACK PAIN WITHOUT NEUROLOGICAL COMPLAINTS OR RADIATING. PAIN IS RIGHT PARASPINAL, DOES NOT RADIATE TO LEG. NO CAUDA EQUINA SYMPTOMS. TAKES LIDOCAINE PATCH WITHOUT RELIEF. REFUSES TO TAKE NSAIDS. Past History Travel History Traveled to [place] past 21 day No Medical History Any Pertinent Medical History? 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 No Review of Systems Review of Systems Constitutional: Reports: no symptoms. Eyes: Reports: no symptoms. Ears, Nose, Throat, Mouth: Reports: no symptoms. Respiratory: Reports: no symptoms. Cardiovascular: Reports: no symptoms. Gastrointestinal/Abdominal: Reports: no symptoms. Musculoskeletal: Reports: no symptoms. Skin: Reports: no symptoms. Neurological/Psychological: Reports: no symptoms. All Other Systems: Reviewed and Negative Physical Exam Physical Exam General Appearance: well developed/nourished, mild distress Head: atraumatic Eyes: Bilateral: PERRL, EOMI. Ears, Nose, Throat, Mouth: hearing grossly normal Neck: normal inspection, supple, full range of motion Respiratory: normal breath sounds Cardiovascular: regular rate/rhythm Gastrointestinal: soft, non-tender Back: normal inspection, normal range of motion, no vertebral tenderness, NO PARAVERTEBRAL TENDERNESS Extremities: normal range of motion Neurologic/Psych: no motor/sensory deficits, awake, alert, oriented x 3, normal mood/affect Skin: intact, normal color, warm/dry Progress Differential Diagnosis: AAA, aortic dissection, C spine injury, carotid dissection, cauda equina syn, herniated disc, myofascial strain, pyelo/UTI, sciatica, spinal cord inj, thoracic outlet syn, T/L spine injury, ureterolithiasis Plan of Care: Current Medications Sig/Tonya Start time Last Medication Dose Stop Time Status Admin Acetaminophen 650 MG ONCE ONE 04/23 1815 AC (Tylenol) 04/23 1816 Departure Departure Time of Disposition: 1809 Disposition: HOME OR SELF CARE Condition: Stable Clinical Impression Primary Impression: Chronic lower back pain Referrals: CYNDY SIMON APRN (PCP/Family) CHARLIE MAHAN,MIKE Ponce Departure Forms: Customer Survey General Discharge Information
== END 2017-04-23 18:15 ==
LOC: ERH 17:32
DX: M54.5 Low back pain (principal)

== ENCOUNTER 2017-10-14 07:24 | Emergency (ER) | payer OTHER ==
[~2017-10-14] VITALS: Ht 144.8 cm; Wt 54.4 kg
[~2017-10-14 07:24] MED LIST changes: +BENTYL10 M1 PO; +CARAFATE1 G1 PO
[2017-10-14 07:27] VITALS: BP 124/85
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
[2017-10-14] MEDS ORDERED: CYCLOBENZAPRINE10 M1 PO (07:49)
== END 2017-10-14 08:02 ==
LOC: ERH 07:24
DX: M54.5 Low back pain (principal)

== ENCOUNTER 2017-11-02 13:46 | Emergency (ER) | payer OTHER ==
[~2017-11-02] VITALS: Ht 144.8 cm; Wt 54.4 kg
[2017-11-02 13:49] VITALS: BP 130/73
--- NOTE | 2017-11-02 14:53 | ED NECK/BACK PAIN COMPLAINT ---
History of Present Illness General Chief Complaint: Lower Extremity Problems Stated Complaint: PT LOWER BACK PAIN Source: patient Exam Limitations: no limitations Vital Signs & Intake/Output Vital Signs & Intake/Output Vital Signs Date Time Temp Pulse Resp B/P B/P Pulse O2 O2 Flow FiO2 Mean Ox Delivery Rate 11/02 1349 98.6 78 18 130/73 100 Room Air Allergies Coded Allergies: NSAIDS (Non-Steroidal Anti-Inflamma (PER PT CANT TAKE DUE TO BYPASS 04/23/17) cat dander (TRIGGERS ASTHMA AND EYES SWELL 04/23/17) celecoxib (From CELEBREX) (DOES SOMETHING TO HEART PER PT 04/23/17) morphine (HEADACHE AND NAUSEA 04/23/17) oats (ITCHY 04/23/17) shellfish derived (SHRIMP - ITCH AND ALLERGY TESTED POSITIVE 04/23/17) tramadol (ITCH 04/23/17) Reconcile Medications Butalb/Acetaminophen/Caffeine (Sbgunn-Aeziobzc-Smby 50-300-40) 50 MG-300 MG-40 MG CAPSULE 1 TAB PO PRN MIGRAINES (Reported) Cyclobenzaprine HCl 10 MG TABLET 1 TAB PO TID PRN SPASM DO NOT DRIVE WITH THIS MEDICATION Cyclobenzaprine HCl 10 MG TABLET 1 TAB PO QPM PRN MUCLE RELAXOR Diclofenac Sodium (Voltaren) 1 % GEL..GRAM. 1 GM TOP 4 TIMES/DAY pain apply to affected area(s) Dicyclomine Hydrochloride (Bentyl) 10 MG CAPSULE 1 CAP PO TID PRN SPASM Ergocalciferol (Vitamin D2) (Vitamin D2) 50,000 UNIT CAPSULE 1 CAP PO QSUN SUPPLEMENT (Reported) Fluticasone/Salmeterol (Advair 250-50 Diskus) 250 MCG-50 MCG/DOSE BLST.W.DEV 1 PUF INH BID WHEEZING (Reported) Lidocaine (Lidoderm) 5 % ADH..PATCH 1 PAT TOP DAILY PRN PAIN may wear up to 12 hours Montelukast Sodium 10 MG TABLET 1 TAB PO DAILY ANTI-INFLAMMATORY (Reported) Multivitamin (Multi-Day Vitamins) 1 EACH TABLET 1 TAB PO DAILY SUPPLEMENT ( Reported) Oxycodone HCl/Acetaminophen (Percocet 5-325 MG Tablet) 5 MG-325 MG TABLET 1 TAB PO BID PRN PAIN Oxycodone HCl/Acetaminophen (Percocet 5-325 MG Tablet) 5 MG-325 MG TABLET 1 TAB PO BID PRN pain Oxycodone HCl/Acetaminophen (Percocet 5-325 MG Tablet) 5 MG-325 MG TABLET 1 TAB PO BID PRN pain Pantoprazole Sodium 40 MG TABLET. 1 TAB PO DAILY ACID REFLUX (Reported) Protein Supplement (Protein Powder) (Unknown Strength) POWDER (Unknown Dose) PO DAILY SUPPLEMENT (Reported) Sucralfate (Carafate) 1 GRAM TABLET 1 TAB PO 4 TIMES/DAY GERD Triage Note: 47 Y/O FEMALE C/O CONTINUED LOW BACK PAIN; WAS EVAL'D IN SEP FOR SAME. STATES FLEXERIL IS NOT HELPING - LAST REPORTED DOSE THIS AM. STATES PAIN RADIATES DOWN R LEG. AMBULATORY WITH STEADY GAIT Triage Nurses Notes Reviewed? yes Onset: Gradual Duration: worse persistent since (5 MONTHS) Timing: recent history Quality/Severity: moderate Location: lumbar spine, paraspinous muscles Radiation: buttocks, upper legs Method of Injury: unknown Loss of Consciousness: no loss of consciousness Modifying Factors: immobilization, movement : No Patient currently breastfeeds: No HPI: Patient is a 47-year-old female with history of chronic low back pain presenting to the emergency department with chief complaint of worsening low back pain over the past several days. Denies any new injury. Pain is primarily located on the right lower back. Radiates into the right buttock and upper leg. Denies any lower extremities weakness. Pain worse with movement. Denies any urinary incontinence or retention. Has been using [id number] Tylenol without relief. Reports she is scheduled to see pain management within the next 2 weeks but was told to come to the emergency department if the pain was not manageable at home. Denies abdominal pain. No chest pain palpitations or shortness of breath. Pain is currently moderate achy and throbbing. Pain worse with any movement or walking. (Sweetie Zheng) Past History Travel History Traveled to [place] past 21 day No Medical History Any Pertinent Medical History? see below for history Neurological: NONE EENT: NONE Cardiovascular: NONE Respiratory: asthma Gastrointestinal: GASTRIC BYPASS IN 2013 Hepatic: NONE Renal: NONE Musculoskeletal: NONE Psychiatric: NONE Endocrine: NONE Blood Disorders: NONE Cancer(s): NONE VENEREAL DISEASE CONTROL HEAD/Reproductive: NONE History of MRSA: No History of VRE: No History of CDIFF: No Surgical History Surgical History: tubal ligation, GASTRIC BYPASS Psychosocial History Who do you live with Family Services at Home None What is your primary language Greek Tobacco Use: Never used Family History Hx Contributory? No (Sweetie Zheng) Review of Systems Review of Systems Constitutional: Reports: no symptoms. Comments Review of systems: See HPI, All other systems negative. Constitutional, no chills fever or weight loss HEENT: No visual changes no sore throat no congestion Cardiovascular: No chest pain ,palpitation , orthopnea Skin, no jaundice no rashes Respiratory: No dyspnea cough sputum or hemoptysis GI: No nausea no vomiting : No dysuria No hematuria Muscle skeletal: no neck pain, Neurologic: no confusion Psych: No stress anxiety or depression,. Heme/endocrine: No bruising no bleeding no polyuria or polydipsia Immunology: No splenectomy or history of AIDS (Sweetie Zheng) Physical Exam Physical Exam General Appearance: well developed/nourished, no apparent distress, alert, awake , comfortable Neck: normal inspection, supple, full range of motion Comments: Well-developed well-nourished person in no acute distress HEENT: Atraumatic, normocephalic Neck: Supple, no lymphadenopathy, normal range of motion without pain or tenderness Back: TENDER TO PALPATION OVER LUMBAR PARASPINAL MUSCLES. Respiratory: No respiratory distress. Abdomen: Soft, nontender nondistended, Extremity: No edema, no calf tenderness to palpation, normal and equal pulses. Neuro: Alert oriented x3, motor sensory normal, PATELLAR REFLEXES BILATERALLY Skin: No appreciable rash on exposed skin, skin is warm and dry. Psych: Mood and affect is normal, memory and judgment is normal. Core Measures CVA/TIA Diagnosis: No (Sweetie Zheng) Progress Differential Diagnosis: cauda equina syn, herniated disc, myofascial strain, sciatica, T/L spine injury Plan of Care: Likely exacerbation of chronic pain. Patient scheduled to see pain management. Discharge home with pain medication, limited prescription. All questions answered, patient nontoxic. No signs of cauda equina. (Sweetie Zheng) Departure Departure Time of Disposition: 1508 Disposition: HOME OR SELF CARE Condition: Stable Clinical Impression Primary Impression: Sciatica Qualifiers: Laterality: right Qualified Code: M54.31 - Sciatica, right side Secondary Impressions: Back pain Qualifiers: Back pain location: low back pain Chronicity: chronic Back pain laterality: right Sciatica presence: with sciatica Sciatica laterality: sciatica of right side Qualified Codes: M54.41 - Lumbago with sciatica, right side; G89.29 - Other chronic pain Referrals: Cinthya Castillo APRN (PCP/Family) Additional Instructions: Follow-up with your primary care physician also follow-up with pain management as scheduled. Take Percocet as prescribed out with pain. Return for worsening symptoms or concerns. This medication can be addictive, only take as directed. Departure Forms: Customer Survey General Discharge Information Prescriptions: Current Visit Scripts Oxycodone HCl/Acetaminophen (Percocet 5-325 MG Tablet) 1 TAB PO BID PRN pain #10 TAB (Sweetie Zheng) PA/LABOR CREW SUPERVISOR Co-Sign Statement Statement: ED Attending supervision documentation- [] I saw and evaluated the patient. I have also reviewed all the pertinent lab results and diagnostic results. I agree with the findings and the plan of care as documented in the PA's/LABOR CREW SUPERVISOR's documentation. [X] I have reviewed the ED Record and agree with the PA's/LABOR CREW SUPERVISOR's documentation. [] Additions or exceptions (if any) to the PAs/LABOR CREW SUPERVISOR's note and plan are summarized below: [] (Castillo Wang DO
[2017-11-02] MEDS ORDERED: PERCOCET 5-3251 EACH PO (15:10)
== END 2017-11-02 15:16 ==
LOC: ERH 13:46
DX: M54.41 Lumbago with sciatica, right side (principal)